=== PATIENT | female | born 1940 | race Caucasian/White ===

== ENCOUNTER 2017-08-15 11:16 | Observation (INO) | payer MEDICARE, OTHER ==
[2017-08-15] MEDS ORDERED: Diazepam 5 MG Tab PO ONE (11:49)
[2017-08-15 12:30] LABS: CHLORIDE,CL 102 mmol/L (98-107); SODIUM,NA 140 mmol/L (136-145)
--- NOTE | 2017-08-15 13:20 | EDM.PDOC ---
ED HPI GENERAL MEDICAL PROBLEM - General Chief Complaint: Gastrointestinal Problem Stated Complaint: ER Time Seen by Provider: 08/15/17 11:18 Source of Information: Reports: Patient, EMS, Family, Old Records History Limitations: Reports: No Limitations - History of Present Illness INITIAL COMMENTS - FREE TEXT/NARRATIVE: This note may be used as an admission H and P. Pt. presents to ER via EMS. Pt. states that she is experiencing diarrhea, nausea , vomiting, lightheadedness, and severe anxiety. She states that the symptoms started since changing her chemotherapy several days ago which she is taking for advanced metastatic breast CA for. It is a palliative chemotherapy (Abraxane ) that she gets once a week. She previously had been on arimidex, but the disease was progressing. 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 According to her chart, she has been experiencing both constipation and diarrhea intermittently since starting Abraxane, and has been trying to manage the symptoms of constipation with colace, and diarrhea with immodium. Unfortunately, this has caused problems for her bowels and she is experiencing abdominal cramping and recurrent nausea/vomiting. Onset: Today Onset Time: 06:00 Location: Reports: Abdomen, Generalized Quality: Reports: Ache, Burning Severity: Moderate Improves with: Reports: Rest Worsens with: Reports: Eating Associated Symptoms: Reports: Confusion (expressive aphasia since chemo), Loss of Appetite, Malaise, Nausea/Vomiting, Weakness. Denies: Chest Pain, Cough, Rash, Seizure, Shortness of Breath Treatments [employer]: Reports: Acetaminophen - Related Data Allergies Allergy/AdvReac Type Severity Reaction Status Date / Time acetaminophen Allergy Rash Verified 05/23/14 11:54 [From Darvocet-N] ciprofloxacin [From Cipro] Allergy Hives Verified 05/23/14 11:54 ciprofloxacin HCl Allergy Hives Verified 05/23/14 11:54 [From Cipro] hydrocodone Allergy Rash Verified 05/23/14 11:54 levofloxacin [From Levaquin] Allergy Other Verified 05/23/14 11:54 oxycodone Allergy Rash Verified 05/23/14 11:54 propoxyphene napsylate Allergy Rash Verified 05/23/14 11:54 [From Darvocet-N] buspirone HCl [From BuSpar] AdvReac Anxiety Verified 08/15/17 12:52 lorazepam [From Ativan] AdvReac Anxiety Verified 08/15/17 12:52 maltodextrin AdvReac Depression Verified 08/15/17 12:52 Sulfa (Sulfonamide AdvReac Fever Verified 08/15/17 12:52 Antibiotics) Home Meds: Home Meds Acetaminophen 1,000 mg PO Q4H PRN 05/23/14 [History] Amoxicillin [Amoxil] 500 mg PO TID 05/23/14 [History] Cholecalciferol (Vitamin D3) [Vitamin D] 1,000 unit PO DAILY 05/23/14 [History] Chrm/Katelyn/ Bt-Org Peel/Gr T [Apple Cider Vinegar Plus TB] 1 each PO DAILY [History] Clobetasol [Clobetasol Propionate 0.05%] 45 gm TOP BID 05/23/14 [History] [place] Butter/Phenylephrine [Preparation H Supp] 1 each RECTAL DAILY PRN [History] DULoxetine [Cymbalta] 60 mg PO BID 05/23/14 [History] Fulvestrant [Faslodex] 500 mg IM Q30D 05/23/14 [History] Garlic 1 each PO DAILY 05/23/14 [History] Lactobacillus Acidophilus [Acidophilus] 1 each PO DAILY 05/23/14 [History] Loperamide [Imodium AD] 2 mg PO PRN 05/23/14 [History] Loratadine [Claritin] 10 mg PO DAILY PRN 05/23/14 [History] Milk Thistle 175 mg PO DAILY 05/23/14 [History] Morphine Sulfate 15 mg PO Q4H PRN 05/23/14 [History] Multivitamin with Minerals [Multiple Vitamin] 1 tab PO DAILY 05/23/14 [History] Omeprazole 20 mg PO DAILY 05/23/14 [History] Ondansetron [Zofran] 4 mg PO TID PRN 05/23/14 [History] Pregabalin [Lyrica] 150 mg PO TID 05/23/14 [History] Psyllium with Sucrose [Metamucil] 1 each PO DAILY 05/23/14 [History] Sodium Fluoride [Clinpro 5000] 113 gm DT 05/23/14 [History] Ubidecarenone [Co Q-10] 100 mg PO DAILY 05/23/14 [History] Vitamin B Complex [B Complex] 1 each PO DAILY 05/23/14 [History] fentaNYL [Fentanyl] 50 mcg TOP Q72H 05/23/14 [History] Calcium Carbonate 500 mg PO DAILY 08/15/17 [History] Omeprazole Magnesium [Prilosec Otc] 20 mg PO DAILY 08/15/17 [History] Prochlorperazine Maleate [Compazine] 10 mg PO Q4H PRN 08/15/17 [History] Past Medical History Gastrointestinal History: Reports: GERD Psychiatric History: Reports: ADD, Anxiety, Depression Oncologic (Cancer) History: Reports: Breast, Metastatic - Past Surgical History Female Surgical History: Reports: Mastectomy Social & Family History - Tobacco Use Smoking Status *Q: Unknown Ever Smoked ED ROS GENERAL - Review of Systems Review Of Systems: See Below Constitutional: Reports: Malaise, Weakness, Fatigue, Decreased Appetite. Denies : Fever, Chills, Night Sweats, Diaphoresis HEENT: Reports: No Symptoms Respiratory: Reports: No Symptoms Cardiovascular: Reports: No Symptoms Endocrine: Reports: No Symptoms GI/Abdominal: Reports: Abdominal Pain, Constipation, Diarrhea, Hematochezia, Melena. Denies: Black Stool, Bloody Stool : Reports: No Symptoms Musculoskeletal: Reports: No Symptoms Skin: Reports: No Symptoms Neurological: Reports: Other (expressive aphasia) Psychiatric: Reports: No Symptoms Hematologic/Lymphatic: Reports: No Symptoms Immunologic: Reports: No Symptoms ED EXAM, GENERAL - Physical Exam Exam: See Below Exam Limited By: No Limitations General Appearance: Alert, WD/WN, No Apparent Distress Eye Exam: Bilateral Eye: EOMI, Normal Fundi, Normal Inspection, PERRL Nose: Normal Inspection, Normal Mucosa, No Blood Throat/Mouth: Normal Inspection, Normal Lips, Normal Teeth, Normal Oropharynx, No Airway Compromise Head: Atraumatic, Normocephalic Neck: Normal Inspection, Supple, Non-Tender Respiratory/Chest: No Respiratory Distress, Lungs Clear, Normal Breath Sounds, No Accessory Muscle Use, Chest Non-Tender Cardiovascular: Normal Peripheral Pulses, Regular Rate, Rhythm, No Edema, No JVD , No Rub Peripheral Pulses: 4+: Radial (L), Radial (R) GI/Abdominal: Soft, No Organomegaly (Female) Exam: Deferred Rectal (Female) Exam: Deferred Back Exam: Normal Inspection, Full Range of Motion, NT Extremities: Normal Inspection, Normal Range of Motion, Non-Tender, Normal Capillary Refill, No Pedal Edema Neurological: Alert, Oriented, CN II-XII Intact, Normal Gait, Normal Reflexes, No Motor/Sensory Deficits. No: Normal Cognition (mildly confused about medications) Psychiatric: Normal Affect, Normal Mood Skin Exam: Warm, Dry, Intact, Normal Color, No Rash Lymphatic: No Adenopathy ED GENERAL MEDICAL PROCEDURES - Additional/Other Procedure(s) Other (Free Text) Procedure(s): Port accessed. Course - Vital Signs Last Recorded V/S: Last Vital Signs Temp 35.6 C 08/15/17 12:53 Pulse 90 08/15/17 12:53 Resp 14 08/15/17 12:53 BP 137/64 08/15/17 12:53 Pulse Ox 96 08/15/17 12:53 - Orders/Labs/Meds Orders: Active Orders 24 hr Category Date Time Status Patient Status [ADT] Routine ADT 08/15/17 12:43 Ordered Implanted Port Access [RC] CONTINUOUS Care 08/15/17 12:48 Ordered Labs: Laboratory Tests 08/15/17 08/15/17 Range/Units 12:05 12:05 WBC 6.3 (4.0-10.0) x10^3/uL RBC 3.39 L (4.00-5.50) x10^6/uL Hgb 10.9 L (12.0-16.0) g/dL Hct 33.6 (33.0-47.0) % MCV 99.1 H D (78.0-93.0) fL MCH 32.2 H (26.0-32.0) pg MCHC 32.4 (32.0-36.0) g/dL RDW Coeff of Maylin 13.6 (10.0-15.0) % Plt Count 207 (130-400) x10^3/uL Neut % (Auto) 87.5 H (50.0-80.0) % Lymph % (Auto) 8.4 L (25.0-50.0) % [place]edar % (Auto) 3.2 (2.0-11.0) % Eos % (Auto) 0.6 (0.0-4.0) % Baso % (Auto) 0.3 (0.2-1.2) % Sodium 140 (136-145) mmol/L Potassium 3.7 (3.5-5.1) mmol/L Chloride 102 (98-107) mmol/L Carbon Dioxide 25 (21-32) mmol/L Anion Gap 16.7 (10-20) mmol/L BUN 16 (7-18) mg/dL Creatinine 0.6 (0.55-1.02) mg/dL Est Cr Clr Drug Dosing TNP Estimated GFR (MDRD) > 60 Glucose 111 H (74-106) mg/dL Calcium 9.5 (8.5-10.1) mg/dL Corrected Calcium 9.98 (8.5-10.1) mg/dL Total Bilirubin 0.6 (0.2-1.0) mg/dL AST 19 (15-37) U/L ALT 20 (14-59) U/L Alkaline Phosphatase 84 (46-116) U/L C-Reactive Protein 0.5 (<=0.9) mg/dL Total Protein 7.6 (6.4-8.2) g/dL Albumin 3.4 (3.4-5.0) g/dL Globulin 4.2 Albumin/Globulin Ratio 0.81 Meds: Medications Discontinued Medications Generic Name Dose Route Start Last Admin Trade Name Freq PRN Reason Stop Dose Admin Diazepam 10 mg 08/15/17 11:49 08/15/17 12:07 Valium. PO 08/15/17 11:50 10 mg ONETIME ONE Administration Departure - Departure Time of Disposition: 13:10 Disposition: Refer to Observation Condition: Good Clinical Impression: Chemotherapy induced nausea and vomiting, Chemotherapy induced diarrhea - Discharge Information Referrals: Bre Kaminski PA-C [Primary Care Provider] - - Problem List Review Problem List Initiated/Reviewed/Updated: Yes - My Orders Last 24 Hours: My Active Orders 08/15/17 12:43 Patient Status [ADT] Routine 08/15/17 12:48 Implanted Port Access [RC] CONTINUOUS - Assessment/Plan Last 24 Hours: My Active Orders 08/15/17 12:43 Patient Status [ADT] Routine 08/15/17 12:48 Implanted Port Access [RC] CONTINUOUS Assessment:: Chemotherapy related nausea, vomiting, and diarrhea. Anxiety. Weakness/mild dehydration. Plan: Discussed findings and history at length with pt., family, and oncologist, Dr. Watts. Decision was made to admit pt. observation. Will start lactated ringers for rehydration. Nausea will be treated with compazine, as pt. is intolerant of zofran. Pt. was given 10mg Valium PO. she was much less tearful and panicked. Will continue this as needed. [facility] was contacted. Pt. did mention on several occasions that she was apprehensive about continuing with chemotherapy. Dr. Watts was hopeful and felt it would be in the pts. best interest, but we will discuss this further with the pt. In the meantime, Home Health/Hospice will research if palliative chemotherapy is possible on hospice. If not, this may be a good time for the pt. to get set up for some help with her medications and ADLs from home health on discharge. Discussed all of these findings and recommendations with pt. and family and they were happy with the plan of care. Pt. advises that she wants to be code 2, no CPR or intubation.
[2017-08-15] MEDS ORDERED: Metoclopramide 10 MG/2 ML SDV IVPUSH PRN (13:55)
[2017-08-15] MEDS ORDERED: Metoclopramide 10 MG/2 ML SDV IVPUSH SCH (14:00)
[2017-08-15] MEDS ORDERED: Lactated Ringers 1,000 ML IV SCH (14:00)
[2017-08-15] MEDS: Diazepam 5 MG Tab PO PRN (14:25)
[2017-08-15] MEDS ORDERED: Loratadine 10 MG Tab PO PRN (15:05)
[2017-08-15] MEDS ORDERED: SALIVA SUBSTITUTION COMBO NO 9 PO PRN (15:15)
[2017-08-15] MEDS: Morphine 15 MG Tab PO PRN (15:24)
[2017-08-15] MEDS: Prochlorperazine 5 MG Tab PO PRN ×2 (15:24→20:44)
[2017-08-15] MEDS: DULoxetine 60 MG Cap PO SCH (20:38)
[2017-08-15] MEDS: Enoxaparin 40 MG/0.4 ML Syringe SUBCUT SCH (20:38)
[2017-08-15] MEDS: Lactated Ringers 1,000 ML IV SCH (23:45)
[2017-08-16] MEDS: Lactated Ringers 1,000 ML IV SCH ×3 (01:26→17:13)
[2017-08-16] MEDS: Omeprazole 20 MG Cap.CR PO SCH (06:43)
[2017-08-16] MEDS: Calcium Carbonate/Vitamin D3 1250 MG-200 Unit Tab PO SCH (08:32)
[2017-08-16] MEDS: Psyllium 0.52 GM Cap PO SCH (08:32)
[2017-08-16] MEDS: Vitamin B Complex Tab.ER PO SCH (08:32)
[2017-08-16] MEDS: Multivitamins with Iron/Calcium/Folic Acid/Minerals Tab PO SCH (08:32)
[2017-08-16] MEDS: Cyanocobalamin (Vitamin B12) 1,000 MCG Tab PO SCH (08:32)
[2017-08-16] MEDS: DULoxetine 60 MG Cap PO SCH ×2 (08:33→21:01)
[2017-08-16] MEDS: UBIDECARENONE 100 MG PO SCH (08:34)
[2017-08-16] MEDS: Morphine 15 MG Tab PO PRN (09:24)
[2017-08-16] MEDS: Prochlorperazine 5 MG Tab PO PRN (09:24)
[2017-08-16] MEDS: Enoxaparin 40 MG/0.4 ML Syringe SUBCUT SCH (21:00)
[2017-08-16] MEDS: Diazepam 5 MG Tab PO PRN (21:05)
[2017-08-17] MEDS: Omeprazole 20 MG Cap.CR PO SCH (06:42)
[2017-08-17] MEDS: Multivitamins with Iron/Calcium/Folic Acid/Minerals Tab PO SCH (07:44)
[2017-08-17] MEDS: DULoxetine 60 MG Cap PO SCH (07:44)
[2017-08-17] MEDS: Cyanocobalamin (Vitamin B12) 1,000 MCG Tab PO SCH (07:45)
[2017-08-17] MEDS: Calcium Carbonate/Vitamin D3 1250 MG-200 Unit Tab PO SCH (07:45)
[2017-08-17] MEDS: Vitamin B Complex Tab.ER PO SCH (07:45)
[2017-08-17] MEDS: Psyllium 0.52 GM Cap PO SCH (07:45)
[2017-08-17] MEDS: UBIDECARENONE 100 MG PO SCH (07:45)
--- NOTE | 2017-08-17 10:06 | PCM.DCSUM1 ---
Discharge Summary - Hospital Course HPI Initial Comments: Pt. presented to ER via EMS two days ago. Pt. states that she is experiencing diarrhea, nausea, vomiting, lightheadedness, and severe anxiety. She states that the symptoms started since changing her chemotherapy several days ago which she is taking for advanced metastatic breast CA for. It is a palliative chemotherapy (Abraxane) that she gets once a week. She previously had been on arimidex, but the disease was progressing. 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 According to her chart, she has been experiencing both constipation and diarrhea intermittently since starting Abraxane, and has been trying to manage the symptoms of constipation with colace, and diarrhea with immodium. Unfortunately, this has caused problems for her bowels and she is experiencing abdominal cramping and recurrent nausea/vomiting. - Discharge Data Discharge Date: 08/17/17 Discharge Disposition: Home, Self-Care 01 Condition: Good - Discharge Diagnosis/Problem(s) (1) Chemotherapy induced diarrhea SNOMED Code(s): 791335958 ICD Code: K52.1 - TOXIC GASTROENTERITIS AND COLITIS; T45.1X5A - ADVERSE EFFECT OF ANTINEOPLASTIC AND IMMUNOSUP DRUGS, INIT Status: Acute Priority: Medium Current Visit: Yes (2) Chemotherapy induced nausea and vomiting SNOMED Code(s): 470500334 ICD Code: R11.2 - NAUSEA WITH VOMITING, UNSPECIFIED; T45.1X5A - ADVERSE EFFECT OF ANTINEOPLASTIC AND IMMUNOSUP DRUGS, INIT Status: Acute Priority: Medium Current Visit: Yes (3) Anxiety SNOMED Code(s): 62460901 ICD Code: F41.9 - ANXIETY DISORDER, UNSPECIFIED Status: Chronic Priority : Medium Current Visit: Yes (4) Breast cancer SNOMED Code(s): 323155002 ICD Code: C50.919 - MALIGNANT NEOPLASM OF UNSP SITE OF UNSPECIFIED FEMALE BREAST Status: Chronic Priority: Medium Current Visit: Yes Qualifiers: Breast location: nipple Estrogen receptor status: unspecified Patient sex : female Laterality: unspecified laterality Qualified Code(s): C50.019 - Malignant neoplasm of nipple and areola, unspecified female breast - Patient Summary/Data Operative Procedure(s) Performed: None Complications: None Consults: Consultations 08/15/17 14:02 Consult to [employer] [CONS] Routine Labs Pending at D/C: None Recommended Follow-up Testing/Procedures: None Planned Operative Procedure(s) after DC: None Hospital Course: Patient remained hemodynamically stable during her stay. She continued to use PRN valium for her anxiety. She did have BM's. No issues with eating. She is ambulating ok. No chest pain or SOB. She feels better today. - Patient Instructions Diet: Regular Diet as Tolerated Activity: As Tolerated, Rest and Relax Today Driving: Do Not Drive Showering/Bathing: May Shower Notify Provider of: Fever, Increased Pain, Nausea and/or Vomiting - Discharge Plan Home Medications: Home Meds Cholecalciferol (Vitamin D3) [Vitamin D3] 1,000 unit PO DAILY 05/23/14 [History] Clobetasol [Temovate 0.05% Crm] 1 applic TOP BID PRN 05/23/14 [History] DULoxetine [Cymbalta] 60 mg PO BID 05/23/14 [History] Fulvestrant [Faslodex] 500 mg IM Q30D 05/23/14 [History] Garlic 1 each PO DAILY 05/23/14 [History] Lactobacillus Acidophilus [Acidophilus] 1 each PO DAILY 05/23/14 [History] Loperamide [Imodium AD] 2 mg PO DAILY 05/23/14 [History] Loratadine [Claritin] 10 mg PO DAILY PRN 05/23/14 [History] Milk Thistle 175 mg PO DAILY 05/23/14 [History] Morphine Sulfate 15 mg PO Q4H PRN 05/23/14 [History] Multivitamin with Minerals [Multiple Vitamin] 1 tab PO DAILY 05/23/14 [History] Omeprazole 20 mg PO DAILY 05/23/14 [History] Pregabalin [Lyrica] 150 mg PO TID 05/23/14 [History] Psyllium with Sucrose [Metamucil] 1 each PO DAILY 05/23/14 [History] Ubidecarenone [Co Q-10] 100 mg PO DAILY 05/23/14 [History] Vitamin B Complex [B Complex] 1 each PO DAILY 05/23/14 [History] Calcium Carbonate 500 mg PO DAILY 08/15/17 [History] Lidocaine/Prilocaine [EMLA Crm] 1 applic TOP ASDIRECTED 08/15/17 [History] Non-Formulary Medication [NF Drug] 0.5 tsp PO ASDIRECTED PRN 08/15/17 [History] Non-Formulary Medication [NF Drug] 1 applic TOP BEDTIME 08/15/17 [History] Non-Formulary Medication [NF Drug] 1 tab PO BID 08/15/17 [History] Prochlorperazine Maleate [Compazine] 10 mg PO Q4H PRN 08/15/17 [History] Saliva Substitution Combo No.9 [Biotene] 1 dose PO ASDIRECTED 08/15/17 [History] Turmeric Root Extract [Turmeric] 500 mg PO ASDIRECTED PRN 08/15/17 [History] Diazepam [Valium] 5 mg PO QID PRN tablet 08/17/17 [Rx] Patient Handouts: Chemotherapy Referrals: Bre Kaminski PA-C [Primary Care Provider] - - Discharge Summary/Plan Comment DC Time >30 min.: No Discharge Summary/Plan Comment: Patient will be discharged home today. I will give her a script for Valium until she is seen by her PCP next week. No changes with any home medications. Will see PCP in one week for hospital follow up. Patient will require the assistance of home health services due to immobility, chemo related N/V/D, meds, and ADL's. - General Info Date of Service: 08/17/17 Admission Dx/Problem (Free Text: Chemotherapy induced N/V/D Anxiety Breast CA Subjective Update: Patient feels better today. She continues to have a nervous issue with her stomach. Otherwise, she wants to go home today. No chest pain. No SOB. VSS. Afebrile. Functional Status: Reports: Pain Controlled, Tolerating Diet, Ambulating, Urinating Numeric/FACES Score: 0 - Review of Systems General: Reports: Weakness, Fatigue. Denies: Fever Pulmonary: Denies: Shortness of Breath, Cough Cardiovascular: Denies: Chest Pain, Palpitations Gastrointestinal: Reports: Nausea. Denies: Abdominal Pain, Vomiting Skin: Reports: No Symptoms Neurological: Reports: No Symptoms Psychiatric: Reports: Anxiety - Patient Data Vitals - Most Recent: Last Vital Signs Temp 36.6 C 08/17/17 06:00 Pulse 92 08/17/17 06:00 Resp 17 08/17/17 06:00 BP 138/62 08/17/17 06:00 Pulse Ox 100 08/17/17 06:00 I&O - Last 24 hours: Intake & Output 08/16/17 08/17/17 08/17/17 22:59 06:59 14:59 Intake Total 1798 900 Output Total 1000 Balance 1798 -100 Med Orders - Current: Current Medications Calcium Carbonate (Calcium Carbonate/Vitamin D 1250 Mg-200 Unit) 1 tab PO DAILY [facility] Last Admin: 08/17/17 07:45 Dose: 1 tab Cyanocobalamin (Vitamin B12) 1,000 mcg PO DAILY [facility] Last Admin: 08/17/17 07:45 Dose: 1,000 mcg Diazepam (Valium.) 5 mg PO QID PRN PRN Reason: Anxiety Last Admin: 08/16/17 21:05 Dose: 5 mg Duloxetine HCl (Cymbalta) 60 mg PO BID [facility] Last Admin: 08/17/17 07:44 Dose: 60 mg Enoxaparin Sodium (Lovenox) 40 mg SUBCUT BEDTIME [facility] Last Admin: 08/16/17 21:00 Dose: 40 mg Heparin Sodium (Porcine) (Heparin Lock Flush 100 Units/Ml) 500 units IVPUSH ASDIRECTED ONE Stop: 08/17/17 10:04 Loratadine (Claritin) 10 mg PO DAILY PRN PRN Reason: Allergies Metoclopramide HCl (Reglan) 5 mg IVPUSH Q6H PRN PRN Reason: Nausea/Vomiting Last Admin: 08/15/17 14:21 Dose: 5 mg Morphine Sulfate (Morphine) 15 mg PO Q4H PRN PRN Reason: Pain Last Admin: 08/16/17 09:24 Dose: 15 mg Multivitamins/Minerals (Thera M Plus) 1 tab PO DAILY [facility] Last Admin: 08/17/17 07:44 Dose: 1 tab Saliva Substitution Combo No.9 [Biotene] (Own Supply) 1 dose PO ASDIRECTED PRN PRN Reason: DRY MOUTH Ubidecarenone [Co Q- 10] 100 Mg (Own Supply) 0 mg PO DAILY [facility] Last Admin: 08/17/17 07:45 Dose: Not Given Omeprazole (Omeprazole) 20 mg PO DAILY@0700 [facility] Last Admin: 08/17/17 06:42 Dose: 20 mg Pregabalin (Lyrica) 150 mg PO TID [facility] Last Admin: 08/17/17 07:44 Dose: 150 mg Prochlorperazine Maleate (Compazine) 10 mg PO Q4H PRN PRN Reason: Vomiting Last Admin: 08/16/17 09:24 Dose: 10 mg Psyllium Hydrophilic Mucilloid (Metamucil) 0.52 gm PO DAILY [facility] Last Admin: 08/17/17 07:45 Dose: 0.52 gm Vitamin B Complex (Balanced B-50) 1 each PO DAILY [facility] Last Admin: 08/17/17 07:45 Dose: 1 each Discontinued Medications Diazepam (Valium.) 10 mg PO ONETIME ONE Stop: 08/15/17 11:50 Last Admin: 08/15/17 12:07 Dose: 10 mg Lactated Ringer's (Ringers, Lactated) 1,000 mls @ 150 mls/hr IV DAILY [facility] Last Admin: 08/15/17 14:21 Dose: 150 mls/hr Lactated Ringer's (Ringers, Lactated) 1,000 mls @ 150 mls/hr IV ASDIRECTED [facility] Last Admin: 08/16/17 17:13 Dose: 150 mls/hr Metoclopramide HCl (Reglan) 5 mg IVPUSH Q6H OPAL - Exam Quality Assessment: Reports: Central Line/PICC General: Reports: Alert, Oriented, Cooperative, No Acute Distress Lungs: Reports: Clear to Auscultation, Normal Respiratory Effort Cardiovascular: Reports: Regular Rate, Regular Rhythm GI/Abdominal Exam: Soft, Tender (generalized (chronic)), Abnormal Bowel Sounds ( Hypoactive) Skin: Reports: Warm, Dry, Intact Neurological: Reports: No New Focal Deficit *Q Meaningful Use (DIS) - VTE *Q VTE Criteria *Q: At risk for falls post discharge secondary to narcotic pain med use
[2017-08-17 10:39] VITALS: BP 143/72
== END 2017-08-17 11:25 | disposition home or self-care (01) ==
LOC: VM.ED 11:16 → VM.MS 12:43
PROVIDERS: ADMIT Physician Assistant; ATTEND Physician Assistant
DX: K52.1 Toxic gastroenteritis and colitis (principal); T45.1X5A Adverse effect of antineoplastic and immunosuppressive drugs, initial encounter; C50.019 Malignant neoplasm of nipple and areola, unspecified female breast; K21.9 Gastro-esophageal reflux disease without esophagitis; F32.9 Major depressive disorder, single episode, unspecified; E86.0 Dehydration; C78.2 Secondary malignant neoplasm of pleura; C77.9 Secondary and unspecified malignant neoplasm of lymph node, unspecified; C78.02 Secondary malignant neoplasm of left lung; C78.01 Secondary malignant neoplasm of right lung; C79.51 Secondary malignant neoplasm of bone; F41.9 Anxiety disorder, unspecified; Z79.899 Other long term (current) drug therapy; Z88.6 Allergy status to analgesic agent; Z88.1 Allergy status to other antibiotic agents; Z88.5 Allergy status to narcotic agent; Z88.8 Allergy status to other drugs, medicaments and biological substances; Z88.2 Allergy status to sulfonamides
CPT/HCPCS: 36415; 80053; 85025; 85027; 86140; 96361; 96372; 96374; 96375; 99285; A9270; G0378; J1642; J1650; J2765; J7120; Q0164

== ENCOUNTER 2018-08-06 10:15 | Inpatient (IN) | payer OTHER ==
[2018-08-06] MEDS ORDERED: SIMETHICONE 125 MG PO PRN (14:09)
[2018-08-06] MEDS ORDERED: Ibuprofen 200 MG Tab PO PRN (14:09)
[2018-08-06] MEDS ORDERED: DULoxetine 60 MG Cap PO SCH (20:00)
[2018-08-06] MEDS ORDERED: Methadone 5 MG Tab PO SCH (20:00)
[2018-08-06] MEDS ORDERED: PROCHLORPERAZINE MALEATE 10 MG PO SCH (20:00)
[2018-08-06] MEDS ORDERED: Diazepam 2 MG Tab PO SCH (20:00)
[2018-08-06] MEDS ORDERED: Gabapentin 300 MG Cap PO SCH (20:00)
[2018-08-06] MEDS: Melatonin 3 MG Tab PO SCH (21:31)
[2018-08-06] MEDS: Omeprazole 20 MG Cap.CR PO SCH (21:31)
[2018-08-06] MEDS: MILK THISTLE SEED EXTRACT PO SCH (21:32)
[2018-08-06] MEDS: METHADONE 5 MG PO SCH (21:34)
[2018-08-06] MEDS: DIAZEPAM PO SCH (21:36)
[2018-08-06] MEDS: DULOXETINE 60 MG PO SCH (21:39)
[2018-08-06] MEDS: PROCHLORPERAZINE 10 MG PO SCH (21:40)
[2018-08-07] MEDS ORDERED: Non-Formulary Medication 1 Each (Pregabalin [Lyrica] 150 MG) PO SCH (08:00)
[2018-08-07] MEDS: DULOXETINE 60 MG PO SCH ×2 (08:22→19:31)
[2018-08-07] MEDS: METHADONE 5 MG PO SCH ×2 (08:23→19:28)
[2018-08-07] MEDS: PROCHLORPERAZINE 10 MG PO SCH ×2 (08:24→19:32)
[2018-08-07] MEDS: LOPERAMIDE PO SCH (11:54)
[2018-08-07] MEDS: SIMETHICONE PO SCH (11:54)
[2018-08-07] MEDS: [UNRECOGNIZED DRUG - REMARK] PO SCH (11:54)
[2018-08-07] MEDS: UBIDECARENONE PO SCH (11:55)
[2018-08-07] MEDS ORDERED: Loperamide 2 MG Cap PO SCH (12:00)
--- NOTE | 2018-08-07 13:34 | PCM.HP ---
H&P History of Present Illness - General Date of Service: 08/07/18 Admit Problem/Dx: Admission Diagnosis/Problem Admission Diagnosis/Problem Neoplasm of breast - History of Present Illness Initial Comments - Free Text/Narative: Chief complaint: Failure to thrive. History of present illness: Unfortunately patient has advancing metastatic breast cancer. She has bone metastases. She has had increasing weakness. Past MRI cervical spine and brain did not show any compressive lesions. 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 She was in swing bed four months ago she has declined since. Becoming more weak. Largely requiring assistance of two to transfer. Her grandchildren were helping her with this but they have other things to attend to now. Hospice is recommended swing bed stay along with social work consult to discuss ideal placement after this for assistance with ADLs. Past medical history: metastatic breast cancer, neuropathy the of right arm, mild diastolic dysfunction, depression, loss of weight, osteonecrosis of jaw, sleep apnea. Previous medications without updated hospice list: Compazine, morphine, Valium, when necessary oxygen, vitamin D, Imodium, omeprazole, Cymbalta, ibuprofen, Lomotil, Lyrica. Numerous drug intolerances listed. 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 Review of systems: Patient denies any fever denies chest pain denies cough denies headaches denies abdominal pain denies dysuria denies diarrhea. Denies any focal pain currently. Physical exam: She is alert oriented ashen a bit thinner than when I last saw her. Her responses are a bit slowed otherwise appropriate. Grossly is neurologically intact, heart and lungs are clear abdomen soft nontender extremity is warm well perfused. Assessment and plan: End stage metastatic breast cancer on hospice. Failure to thrive at home, requiring assistance of two and she no longer has anyone living with her manager maritime. Her pain and other symptoms are otherwise well controlled. Respite care here and then we will discuss placement options with social work. Continue home hospice PRN meds. Right Arm Pain Score (Numeric/FACES): 2 - Related Data Allergies/Adverse Reactions: Allergies Allergy/AdvReac Type Severity Reaction Status Date / Time acetaminophen Allergy Rash Verified 08/06/18 08:56 [From Darvocet-N] ciprofloxacin [From Cipro] Allergy Hives Verified 08/06/18 08:56 ciprofloxacin HCl Allergy Hives Verified 04/30/19 08:56 [From Cipro] hydrocodone Allergy Rash Verified 08/06/18 08:56 levofloxacin [From Levaquin] Allergy Other Verified 08/06/18 08:56 oxycodone Allergy Rash Verified 08/06/18 08:56 propoxyphene napsylate Allergy Rash Verified 08/06/18 08:56 [From Darvocet-N] buspirone HCl [From BuSpar] AdvReac Anxiety Verified 08/06/18 08:56 lorazepam [From Ativan] AdvReac Anxiety Verified 08/06/18 08:56 maltodextrin AdvReac Depression Verified 08/06/18 08:56 Sulfa (Sulfonamide AdvReac Fever Verified 08/06/18 08:56 Antibiotics) Home Medications: Home Meds DULoxetine HCl [Cymbalta] 60 mg PO BID@0800,199908/06/18 [History] Gabapentin [Neurontin] 300 mg PO TID 08/06/18 [History] Garlic [Odor Free Garlic] 100 mg PO DAILY@119908/06/18 [History] Ibuprofen 200 - 400 mg PO Q4HR PRN 08/06/18 [History] Loperamide HCl/Simethicone [Imodium Multi-Symptom Rel Cplt] 1 each PO DAILY@ 119908/06/18 [History] Melatonin 3 mg PO BEDTIME 08/06/18 [History] Methadone 5 mg PO BID@799,199908/06/18 [History] Milk Thistle Seed Extract [Milk Thistle] 140 mg PO BEDTIME 08/06/18 [History] Omeprazole Magnesium [Prilosec Otc] 20 mg PO BEDTIME 08/06/18 [History] Pregabalin [Lyrica] 150 mg PO DAILY 08/06/18 [History] Prochlorperazine Maleate [Compazine] 10 mg PO BID@08,199908/06/18 [History] Sennosides/Docusate Sodium [Senna-S] 1 tab PO BID 08/06/18 [History] Simethicone 125 mg PO BEDTIME PRN 08/06/18 [History] Ubidecarenone [Co Q-10] 200 mg PO DAILY@1200 08/06/18 [History] diazePAM [Valium] 4 mg PO BEDTIME 08/06/18 [History] Past Medical History Cardiovascular History: Reports: Other (See Below) Other Cardiovascular History: Peripheral edema. 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 Scoliosis. Kyphoscoliosis. Weakness of left leg Neurological History: Reports: Neuropathy, Peripheral, Vertigo, Other (See Below ) Psychiatric History: Reports: ADD, ADHD, Anxiety, Depression, Other (See Below) Other Psychiatric History: Adjustment disorder Oncologic (Cancer) History: Reports: Bone, Breast, Lung, Lymphoma, Metastatic, Ovarian Dermatologic History: Reports: Other (See Below) Other Dermatologic History: Atopic neurodermatitis - Past Surgical History HEENT Surgical History: Reports: Tonsillectomy GI Surgical History: Reports: Cholecystectomy Female Surgical History: Reports: Mastectomy Musculoskeletal Surgical History: Reports: Arthroscopic Knee Oncologic Surgical History: Reports: Lumpectomy, Mastectomy Social & Family History - Family History Family Medical History: Noncontributory - Tobacco Use Smoking Status *Q: Never Smoker Second Hand Smoke Exposure: No - Caffeine Use Caffeine Use: Reports: None - Recreational Drug Use Recreational Drug Use: No H&P Review of Systems - Review of Systems: Review Of Systems: See Below Exam - Exam Exam: See Below - Vital Signs Vital Signs: Last Vital Signs Temp 36.4 C 08/07/18 06:00 Pulse 80 08/07/18 06:00 Resp 18 08/06/18 10:30 BP 129/68 08/07/18 06:00 Pulse Ox 94 L 08/07/18 06:00 Weight: 59.874 kg Problem List Initiated/Reviewed/Updated: Yes Orders Last 24hrs: Active Orders 24 hr Category Date Time Status Diazepam. Med 08/06/18 20:00 Active 0 mg PO BEDTIME Docusate Sodium/Sennosides [Senna Plus] Med 08/06/18 20:00 Active 1 tab PO BID Duloxetine. Med 08/06/18 20:00 Active 0 mg PO BID Gabapentin. Med 08/06/18 20:00 Active 0 mg PO TID Garlic [Odor Free Garlic] Med 08/07/18 12:00 Active 0 mg PO DAILY@1200 Ibuprofen [Motrin] Med 08/06/18 14:09 Active 200 - 400 mg PO Q4HR PRN Imodium Multi-Symptom Relief Med 08/07/18 12:00 Active 1 tab PO DAILY@1200 Melatonin Med 08/06/18 20:00 Active 3 mg PO BEDTIME Methadone. Med 08/06/18 20:00 Active 0 mg PO BID Milk Thistle Seed Extract [Milk Thistle 140 MG] Med 08/06/18 20:00 Active 0 mg PO BEDTIME Omeprazole Med 08/06/18 20:00 Active 20 mg PO BEDTIME Prochlorperazine. Med 08/06/18 20:00 Active 0 mg PO BID Simethicone [Simethicone] Med 08/06/18 14:09 Active 0 mg PO BEDTIME PRN Ubidecarenone [Co Q-10] Med 08/07/18 12:00 Active 0 mg PO DAILY@1200 Medication Orders Ibuprofen (Motrin) 200 - 400 mg PO Q4HR PRN PRN Reason: Pain Melatonin (Melatonin) 3 mg PO BEDTIME [facility] Last Admin: 08/06/18 21:31 Dose: 3 mg Garlic [Odor Free Garlic] 100mg (Own Supply) 0 mg PO DAILY@1200 [facility] Last Admin: 08/07/18 11:54 Dose: 100 mg Milk Thistle Seed Extract 140mg (Own Supply) 0 mg PO BEDTIME [facility] Last Admin: 08/06/18 21:32 Dose: 140 mg Simethicone 125mg ( (Own Supply)) 0 mg PO BEDTIME PRN PRN Reason: Gas relief (Ubidecarenone [Co Q (-10] (Own Supply)) 0 mg PO DAILY@1200 [facility] Last Admin: 08/07/18 11:55 Dose: 200 mg Diazepam. (Own (Supply)) 0 mg PO BEDTIME [facility] Last Admin: 08/06/18 21:36 Dose: 4 mg Duloxetine. 60mg ( (Own Supply)) 0 mg PO BID [facility] Last Admin: 08/07/18 08:22 Dose: 60 mg Admin: 08/06/18 21:39 Dose: 60 mg Gabapentin. 300mg ( (Own Supply)) 0 mg PO TID [facility] Last Admin: 08/07/18 11:52 Dose: 300 mg Admin: 08/07/18 08:23 Dose: 300 mg Admin: 08/06/18 21:34 Dose: 300 mg Methadone. 5mg (Own (Supply)) 0 mg PO BID [facility] Last Admin: 08/07/18 08:23 Dose: 5 mg Admin: 08/06/18 21:34 Dose: 5 mg Prochlorperazine. (10mg (Own Supply)) 0 mg PO BID [facility] Last Admin: 08/07/18 08:24 Dose: 10 mg Admin: 08/06/18 21:40 Dose: 10 mg Imodium Multi- Symptom Relief (Own Supply) 1 tab PO DAILY@1200 [facility] Last Admin: 08/07/18 11:54 Dose: 1 tab Omeprazole (Omeprazole) 20 mg PO BEDTIME [facility] Last Admin: 08/06/18 21:31 Dose: 20 mg Senna/Docusate Sodium (Senna Plus) 1 tab PO BID [facility] Last Admin: 08/07/18 08:24 Dose: 1 tab Admin: 08/06/18 21:31 Dose: 1 tab
[2018-08-07] MEDS: Melatonin 3 MG Tab PO SCH (19:27)
[2018-08-07] MEDS: DIAZEPAM PO SCH (19:27)
[2018-08-07] MEDS: MILK THISTLE SEED EXTRACT PO SCH (19:30)
[2018-08-07] MEDS: Omeprazole 20 MG Cap.CR PO SCH (19:38)
[2018-08-08] MEDS: DULOXETINE 60 MG PO SCH ×2 (07:48→19:51)
[2018-08-08] MEDS: PROCHLORPERAZINE 10 MG PO SCH ×2 (07:48→19:51)
[2018-08-08] MEDS: METHADONE 5 MG PO SCH ×2 (07:48→19:47)
[2018-08-08] MEDS: UBIDECARENONE PO SCH (11:39)
[2018-08-08] MEDS: [UNRECOGNIZED DRUG - REMARK] PO SCH (11:39)
[2018-08-08] MEDS: LOPERAMIDE PO SCH (11:40)
[2018-08-08] MEDS: SIMETHICONE PO SCH (11:40)
[2018-08-08] MEDS: Omeprazole 20 MG Cap.CR PO SCH (19:46)
[2018-08-08] MEDS: Melatonin 3 MG Tab PO SCH (19:46)
[2018-08-08] MEDS: DIAZEPAM PO SCH (19:48)
[2018-08-08] MEDS: MILK THISTLE SEED EXTRACT PO SCH (19:50)
[2018-08-09] MEDS: DULOXETINE 60 MG PO SCH ×2 (07:43→22:39)
[2018-08-09] MEDS: PROCHLORPERAZINE 10 MG PO SCH ×2 (07:43→22:41)
[2018-08-09] MEDS: METHADONE 5 MG PO SCH ×2 (07:44→22:37)
[2018-08-09] MEDS: LOPERAMIDE PO SCH (11:57)
[2018-08-09] MEDS: [UNRECOGNIZED DRUG - REMARK] PO SCH (11:57)
[2018-08-09] MEDS: UBIDECARENONE PO SCH (11:57)
[2018-08-09] MEDS: SIMETHICONE PO SCH (11:57)
--- NOTE | 2018-08-09 14:14 | PCM.DCSUM1 ---
Discharge Summary - Hospital Course Free Text/Narrative:: Patient was admitted for failure to thrive. She's on hospice therapy for metastatic breast CA. She became weak requiring transfer of two. Her grandchildren who are providing assistance in the home had other obligations. Her pain is controlled. She has been working with her family, social studies department chair and hospice on admit here. They have set up plan to get a caregiver in the home so that she can return to her home environment as desired. No other issues arose during her short stay. Diagnosis: Stroke: No - Discharge Data Discharge Date: 08/10/18 Discharge Disposition: Home, Self-Care 01 Condition: Fair - Discharge Diagnosis/Problem(s) (1) Breast cancer SNOMED Code(s): 561291052 ICD Code: C50.919 - MALIGNANT NEOPLASM OF UNSP SITE OF UNSPECIFIED FEMALE BREAST Status: Chronic Priority: Medium Current Visit: No Qualifiers: Breast location: nipple Estrogen receptor status: unspecified Patient sex : female Laterality: unspecified laterality Qualified Code(s): C50.019 - Malignant neoplasm of nipple and areola, unspecified female breast - Discharge Plan *PRESCRIPTION DRUG MONITORING PROGRAM REVIEWED*: Not Applicable *COPY OF PRESCRIPTION DRUG MONITORING REPORT IN PATIENT PAO: Not Applicable Home Medications: Home Meds DULoxetine HCl [Cymbalta] 60 mg PO BID@0800,199908/06/18 [History] Gabapentin [Neurontin] 300 mg PO TID 08/06/18 [History] Garlic [Odor Free Garlic] 100 mg PO DAILY@119908/06/18 [History] Ibuprofen 200 - 400 mg PO Q4HR PRN 08/06/18 [History] Loperamide HCl/Simethicone [Imodium Multi-Symptom Rel Cplt] 1 each PO DAILY@ 1200 08/06/18 [History] Melatonin 3 mg PO BEDTIME 08/06/18 [History] Methadone 5 mg PO BID@799,199908/06/18 [History] Milk Thistle Seed Extract [Milk Thistle 140 MG] 140 mg PO BEDTIME 08/06/18 [ History] Omeprazole Magnesium [Prilosec Otc] 20 mg PO BEDTIME 08/06/18 [History] Pregabalin [Lyrica] 150 mg PO DAILY 08/06/18 [History] Prochlorperazine Maleate [Compazine] 10 mg PO BID@0800,199908/06/18 [History] Sennosides/Docusate Sodium [Senna-S] 1 tab PO BID 08/06/18 [History] Simethicone 125 mg PO BEDTIME PRN 08/06/18 [History] Ubidecarenone [Co Q-10] 200 mg PO DAILY@1200 08/06/18 [History] diazePAM [Valium] 4 mg PO BEDTIME 08/06/18 [History] Diazepam. 0 mg PO BEDTIME 08/09/18 [Rx] Duloxetine. 0 mg PO BID 08/09/18 [Rx] Gabapentin. 0 mg PO TID 08/09/18 [Rx] Imodium Multi-Symptom Relief 1 tab PO DAILY@1200 08/09/18 [Rx] Melatonin 3 mg PO BEDTIME tablet 08/09/18 [Rx] Methadone. 0 mg PO BID 08/09/18 [Rx] Prochlorperazine. 0 mg PO BID 08/09/18 [Rx] Ubidecarenone [Co Q-10] 0 mg PO DAILY@1200 08/09/18 [Rx] - Discharge Summary/Plan Comment DC Time >30 min.: No - Patient Data Vitals - Most Recent: Last Vital Signs Temp 36.9 C 08/09/18 05:57 Pulse 78 08/09/18 05:57 Resp 18 08/09/18 05:57 BP 141/78 H 08/09/18 05:57 Pulse Ox 97 08/09/18 05:57 Weight - Most Recent: 59.874 kg I&O - Last 24 hours: Intake & Output 08/08/18 08/09/18 08/09/18 22:59 06:59 14:59 Intake Total 840 300 720 Output Total 1200 Balance 840 -900 720 Med Orders - Current: Current Medications Ibuprofen (Motrin) 200 - 400 mg PO Q4HR PRN PRN Reason: Pain Melatonin (Melatonin) [address] [facility] Last Admin: 08/08/18 19:46 Dose: 3 mg Garlic [Odor Free Garlic] 100mg (Own Supply) 0 mg PO DAILY@1200 [facility] Last Admin: 08/09/18 11:57 Dose: 100 mg Milk Thistle Seed Extract 140mg (Own Supply) [address] [facility] Last Admin: 08/08/18 19:50 Dose: 140 mg Simethicone 125mg ( (Own Supply)) 0 mg PO BEDTIME PRN PRN Reason: Gas relief (Ubidecarenone [Co Q (-10] (Own Supply)) 0 mg PO DAILY@1200 [facility] Last Admin: 08/09/18 11:57 Dose: 200 mg Diazepam. (Own (Supply)) [address] [facility] Last Admin: 08/08/18 19:48 Dose: 4 mg Duloxetine. 60mg ( (Own Supply)) [address] [facility] Last Admin: 08/09/18 07:43 Dose: 60 mg Gabapentin. 300mg ( (Own Supply)) [address] [facility] Last Admin: 08/09/18 11:56 Dose: 300 mg Methadone. 5mg (Own (Supply)) [address] [facility] Last Admin: 08/09/18 07:44 Dose: 5 mg Prochlorperazine. (10mg (Own Supply)) [address] [facility] Last Admin: 08/09/18 07:43 Dose: 10 mg Imodium Multi- Symptom Relief (Own Supply) 1 tab PO DAILY@1200 [facility] Last Admin: 08/09/18 11:57 Dose: 1 tab Omeprazole (Omeprazole) [address] [facility] Last Admin: 08/08/18 19:46 Dose: 20 mg Senna/Docusate Sodium (Senna Plus) [address] [facility] Last Admin: 08/09/18 07:44 Dose: 1 tab
[2018-08-09] MEDS: DIAZEPAM PO SCH (22:34)
[2018-08-09] MEDS: MILK THISTLE SEED EXTRACT PO SCH (22:38)
[2018-08-09] MEDS: Melatonin 3 MG Tab PO SCH (22:39)
[2018-08-09] MEDS: Omeprazole 20 MG Cap.CR PO SCH (22:45)
[2018-08-10 06:04] VITALS: BP 128/69
[2018-08-10] MEDS: METHADONE 5 MG PO SCH (08:21)
[2018-08-10] MEDS: DULOXETINE 60 MG PO SCH (08:22)
[2018-08-10] MEDS: PROCHLORPERAZINE 10 MG PO SCH (08:22)
[2018-08-10] MEDS: [UNRECOGNIZED DRUG - REMARK] PO SCH (12:29)
[2018-08-10] MEDS: UBIDECARENONE PO SCH (12:30)
[2018-08-10] MEDS: LOPERAMIDE PO SCH (12:30)
[2018-08-10] MEDS: SIMETHICONE PO SCH (12:30)
== END 2018-08-10 13:20 | disposition home or self-care (01) | DRG 598 ==
LOC: VM.MS 10:15
PROVIDERS: ADMIT Family Medicine; ATTEND Family Medicine
DX: C50.019 Malignant neoplasm of nipple and areola, unspecified female breast (principal); C79.51 Secondary malignant neoplasm of bone; G56.91 Unspecified mononeuropathy of right upper limb; F32.9 Major depressive disorder, single episode, unspecified; F43.20 Adjustment disorder, unspecified; R62.7 Adult failure to thrive; K21.9 Gastro-esophageal reflux disease without esophagitis; F41.9 Anxiety disorder, unspecified; Z51.5 Encounter for palliative care; F90.9 Attention-deficit hyperactivity disorder, unspecified type; Z85.43 Personal history of malignant neoplasm of ovary; Z85.118 Personal history of other malignant neoplasm of bronchus and lung; Z85.72 Personal history of non-Hodgkin lymphomas; Z88.1 Allergy status to other antibiotic agents; Z88.2 Allergy status to sulfonamides; Z79.899 Other long term (current) drug therapy; Z90.89 Acquired absence of other organs; Z90.49 Acquired absence of other specified parts of digestive tract; Z68.21 Body mass index [BMI] 21.0-21.9, adult
CPT/HCPCS: A9270-GY